=== PATIENT | male | born 1955 | race Caucasian/White ===

== ENCOUNTER 2024-09-26 07:28 | Emergency (ER) | payer MEDICARE, OTHER, SELFPAY ==
[2024-09-26 07:31] VITALS: BP 124/77
[2024-09-26 07:42] VITALS: BP 131/84
[2024-09-26 07:44] VITALS: BMI 31.7
--- NOTE | 2024-09-26 07:45 | ED.GENMED ---
History of Present Illness
General
Chief Complaint: Post Operative Problem(s)
Source: patient
Exam Limitations: none
Time Seen by Provider: 09/26/24 07:38
History of Present Illness
History of Present Illness:
69-year-old male presents with right calf pain and swelling getting worse since Friday. He had a right total knee replacement on Friday, 2 days ago. He was placed on Eliquis postoperatively. He started this yesterday. He has been on 2 and half
milligrams twice a day. He denies chest pain or shortness of breath. It hurts in his calf to move his ankle. No fevers. No other complaints at this time
Phy Exam
Physical Exam
Physical Exam:
General: Well-appearing male no acute respiratory distress HEENT normocephalic atraumatic
Heart: Regular rate and rhythm lungs: Clear no wheeze
Extremities: Pitting edema right lower extremity from the knee down. No cyanosis palpable DP pulse right foot
Musculoskeletal exam: Right knee with postoperative dressing. The calf is swollen and tender to the touch posteriorly there is increased pain to the calf lection of the ankle
Skin is warm no evidence of erythema
Course
Orders/Labs/Results
Orders:
Orders
09/26/24 07:44
Venous Doppler Lwr Ext Rt [US Periph Venous LOWER Ext RT] Urgent
Comment:
Reason For Exam: pain in calf
Vital Signs
Initial and Last Documented VS:
Initial Vital Signs
Temp Pulse Resp BP Pulse Ox
97.7 F 86 16 124/77 94
09/26/24 07:31 09/26/24 07:31 09/26/24 07:31 09/26/24 07:31 09/26/24 07:31
Last Documented Vital Signs
Temp Pulse Resp BP Pulse Ox
97.3 F 66 18 120/99 98
09/26/24 07:42 09/26/24 09:21 09/26/24 09:21 09/26/24 09:21 09/26/24 09:21
MDM/Problems Addressed
Differential Diagnosis Includes:
Right calf pain and swelling 2 days postop from knee replacement surgery on the right side differential could include DVT however started Karina yesterday has had a total of 3 doses. The dose was 2.5 mg. Otherwise is not parenteral could include
postoperative swelling or inflammation. No overt signs of infection. No chest pain or shortness of breath.
Venous ultrasound of the right leg pending
*Critical Care Note
Total Time (30-74mins, 75-104mins- exclusive of procedures): Not Applicable
Update Note
Update Note:
Ultrasound negative for DVT. Reassured patient. Suspect postoperative swelling. Recommended continued anti-inflammatories. Stable for discharge
ED Attending Note
-
Portions of this chart may have been created with voice recognition software.� Occasional wrong word or��sound alike� substitutions may have occurred due to the inherent limitations of voice recognition software.
Discharge Plan
Departure
Patient Disposition: Home (Routine Discharge)
Date of Disposition: 09/26/24
Time of Disposition: 10:23
Patient with high blood pressure during this ER visit?: No
Discharge Problem:
Calf pain
Referrals:
Leland Hunter MD [Family Provider] -
Activity Restrictions/Additional Instructions:
Elevate for swelling. Continue anti-inflammatory. Return if worse otherwise follow-up with your surgeon
Interventions
Interventions:
*Risk Screen - Suicide Last Done: 09/26/24 07:31
*General Assessment Last Done: 09/26/24 08:00
*Neglect/Abuse Screening Last Done: 09/26/24 07:31
*ED- Fall Risk Assessment Last Done: 09/26/24 08:00
*ED COVID-19 Vaccine History Last Done: 09/26/24 08:00
ED-Skin Assessment Last Done: 09/26/24 07:45
Discharge Date and Time
Print Language: [email or web address]
[2024-09-26 09:21] VITALS: BP 120/99
== END 2024-09-26 10:31 | disposition home or self-care (01) ==
LOC: EMR 07:28
PROVIDERS: EMERGENCY PHYSICIAN Emergency Medicine; FAMILY PHYSICIAN Internal Medicine
DX: G89.18 Other acute postprocedural pain (principal); M79.661 Pain in right lower leg; Z96.651 Presence of right artificial knee joint; Z79.01 Long term (current) use of anticoagulants
CPT/HCPCS: 99284; 93971